=== PATIENT | male | born 1995 | race Caucasian/White ===

== ENCOUNTER 2018-07-06 13:42 | Emergency (ER) | payer SELFPAY ==
[~2018-07-06] VITALS: Ht 177.8 cm; Wt 79.5 kg
[~2018-07-06 13:42] MED LIST: NO MEDS
[2018-07-06] MEDS ORDERED: IBUPROFEN 600 MG TABLET PO ONE (14:30)
[2018-07-06 16:17] VITALS: BP 113/73
== END 2018-07-06 16:32 | disposition home or self-care (01) ==
LOC: EMS 13:44
DX: S30.0XXA Contusion of lower back and pelvis, initial encounter (principal); S00.03XA Contusion of scalp, initial encounter; F12.90 Cannabis use, unspecified, uncomplicated; Y04.0XXA Assault by unarmed brawl or fight, initial encounter; Y93.89 Activity, other specified; Y92.89 Other specified places as the place of occurrence of the external cause; Y99.8 Other external cause status
CPT/HCPCS: 72110